=== PATIENT | female | born 1970 | race Two or more races ===

== ENCOUNTER 2023-08-17 09:55 | Day surgery (SDC) | payer BC ==
[2023-08-13 09:33] LABS: Basophils # (auto) 0 10 ^3/uL (0-0.2); Basophils % (auto) 0.6 % (0.0-2.0); Eosinophils # (auto) 0.3 10 ^3/uL (0-0.8); Eosinophils % (auto) 5.5 % (0.0-7.0); Hematocrit 39.1 % (36.0-46.0); Hemoglobin 13.1 g/dL (12.2-16.2); Lymphocytes # (auto) 1.9 10 ^3/uL (0.4-5.4); Lymphocytes % (auto) 38.4 % (10.0-50.0); Mean Corpuscular Hgb Conc. 33.4 g/dL (32.0-36.0); Mean Corpuscular Volume 89.8 fL (80.0-100.0); Monocytes # (auto) 0.4 10 ^3/uL (0-1.3); Monocytes % (auto) 7.8 % (0.0-12.0); Neutrophils # (auto) 2.4 10 ^3/uL (1.6-8.6); Neutrophils % (auto) 47.7 % (37.0-80.0); Nucleated Red Blood Cells % 0.1 %; Red Blood Cells 4.35 10^6/uL (4.0-5.20); Red Cell Distribution Width 13.3 % (11.8-14.3); White Blood Cell 5.1 10^3/uL (4.4-10.8)
[2023-08-13 09:45] LABS: Alanine Aminotransferase 25 U/L (7-40); Albumin 4.7 g/dL (3.2-4.8); Alkaline Phosphatase 72 U/L (46-116); Anion Gap 8 (5-15); Aspartate Aminotransferase 14 U/L (13-40); BUN/Creatinine Ratio 21.4 (10.0-20.0); Blood Urea Nitrogen 15 mg/dL (9-23); Calcium 9.6 mg/dL (8.5-10.1); Carbon Dioxide 26 mmol/L (20-30); Chloride 108 mmol/L (98-107); Glucose 98 mg/dL (74-106); Potassium 4.2 mmol/L (3.5-5.1); Sodium 142 mmol/L (136-145)
[2023-08-13 09:46] LABS: Bilirubin, Total 0.3 mg/dL (0.2-1.0); Total Protein 7.6 g/dL (5.7-8.2)
[2023-08-13 09:50] LABS: INR 1.01 (0.9-1.15); Prothrombin Time 10.6 sec (9.3-11.8)
[~2023-08-17] VITALS: Ht 154.9 cm; Wt 54.4 kg
[~2023-08-17 09:55] MED LIST: GABA-1250 PO
[2023-08-17] MEDS ORDERED: SODIUM CHLORIDE LOCK 10 ML ONE (09:58)
[2023-08-17] MEDS: MIDAZOLAM HCL 5 MG/ML-1ML VIAL ONE ×2 (11:08→11:13)
[2023-08-17] MEDS: fentaNYL CITRATE 100 MCG/2 ML VL ONE ×2 (11:08→11:13)
[2023-08-17] MEDS: diphenhdrAMINE HCL 50 MG/1 ML VL ONE ×2 (11:08→11:10)
[2023-08-17 11:27] VITALS: TEMP 97.8; O2SAT 100
[2023-08-17 12:12] VITALS: BP 91/68; PULSE 68; RESP 16; O2SAT 98
== END 2023-08-17 12:20 | disposition home or self-care (01) ==
LOC: GI 09:55
PROVIDERS: ATTEND Internal Medicine Gastroenterology
DX: Z12.11 Encounter for screening for malignant neoplasm of colon (principal); Z86.010 Personal history of colon polyps; K57.30 Diverticulosis of large intestine without perforation or abscess without bleeding; K64.0 First degree hemorrhoids
CPT/HCPCS: 36415; 45378; 80053; 85025; 85610; 85730; J1200; J2250; J3010; J7030